=== PATIENT | male | born 1945 | race Caucasian/White ===

== ENCOUNTER → 2023-08-21 11:45 | Outpatient (REF) | payer OTHER, SELFPAY ==
[2023-08-21 12:32] LABS: % Basophils 0.5 % (0-2); % Immature Granulocytes 0.5 % (0-0.5); % Lymphocytes 37.6 % (20.5-51.1); % Monocytes 7.2 % (1.7-9.3); % Neutrophils 53.2 % (42.2-75.2); Absolute Basophils 0.1 10^3/uL (0-0.2); Absolute Eosinophils 0.1 10^3/uL (0-0.7); Absolute Immature Granulocytes 0.1 10^3/uL (0-0.05); Absolute Lymphocytes 4.8 10^3/uL (1.2-3.4); Absolute Monocytes 0.9 10^3/uL (0.1-0.6); Absolute Neutrophils 6.8 10^3/uL (1.4-6.5); Hematocrit 44.7 % (39.0-52.0); Hemoglobin 14.9 g/dL (13.0-18.0); Mean Corp Hgb Conc. 33.3 g/dL (33.0-37.0); Mean Corpuscular Hgb 29.8 pg (27.0-31.0); Mean Corpuscular Volume 89.4 fL (80.0-94.0); Mean Platelet Volume 10.4 fL (7.4-10.4); Nucleated Red Blood Cells % 0 % (-); Platelet Count 265 10^3/uL (130-400); Red Cell Dist. Width 12.5 % (11.5-14.5); White Blood Cell Count 12.8 10^3/uL (4.8-10.8)
== END ==
LOC: REG 11:45
PROVIDERS: ATTENDING PHYSICIAN Internal Medicine
DX: D72.829 Elevated white blood cell count, unspecified (principal)
CPT/HCPCS: 36415; 85025; 85540

== ENCOUNTER → 2023-10-05 13:32 | Outpatient (REF) | payer OTHER, SELFPAY | LOC: REG 13:32 | PROVIDERS: ATTENDING PHYSICIAN Internal Medicine | DX: D72.829 Elevated white blood cell count, unspecified (principal) | CPT/HCPCS: 36415 ==

== ENCOUNTER 2025-01-23 05:56 | Day surgery (SDC) | payer OTHER, SELFPAY ==
[2025-01-06 11:09] LABS: Hematocrit 39.4 % (39.0-52.0); Hemoglobin 13.5 g/dL (13.0-18.0); Mean Corp Hgb Conc. 34.3 g/dL (33.0-37.0); Mean Corpuscular Volume 88.1 fL (80.0-94.0); Platelet Count 222 10^3/uL (130-400); Red Cell Dist. Width 12.6 % (11.5-14.5)
[2025-01-06 11:49] LABS: Blood Urea Nitrogen 20 mg/dl (9-20); Calcium 9.8 mg/dl (8.4-10.2); Carbon Dioxide 24 mmol/L (22-30); Chloride 103 mmol/L (98-107); Glucose 138 mg/dl (70-99); Potassium 4.8 mmol/L (3.5-5.1); Sodium 135 mmol/L (135-145); eGFR > 60.00
[2025-01-06 13:44] VITALS: BMI 23.1
[2025-01-23] VITALS (7 sets, daily range): BP systolic 120–156; BP diastolic 50–73; BMI 23.1
--- NOTE | 2025-01-23 06:31 | HP.FOC2 ---
Focused History & Physical
Chief Complaint
HPI:
Chief Complaint: Left inguinal hernia and umbilical hernia
HPI / Indication for Planned Procedure: Patient is a 79-year-old male recently seen in outpatient surgical evaluation secondary to a history of swelling of discomfort in the left inguinal region. Symptoms are more noticeable at the end of the day
or after prolonged standing. The hernia remains reducible. An incidental umbilical hernia was also noted during physical examination. After discussions regarding treatment options patient wished to pursue operative correction and presents today
for scheduled surgery.
Relevant Past Medical History: Other (Type 2 diabetes, hypertension, history of prostate cancer)
Relevant Social History: Negative
Relevant Family History: Negative
Relevant Past Surgical History: Positive for (Perineal prostatectomy)
Review of Systems
Review of Pertinent Systems: All Systems Negative
Medication
See Medication form for detailed medications: Yes
Medication List (including Herbals & OTC):
atenolol 50 mg tablet 50 mg PO DAILY 03/08/10
metformin 500 mg tablet 500 mg PO BID 03/08/10
amlodipine 5 mg tablet 5 mg PO DAILY 01/16/25
ascorbic acid (vitamin C) 500 mg capsule,extended release 500 mg PO DAILY 01/16/25
glimepiride 1 mg tablet 1 mg PO DAILY 01/16/25
melatonin 10 mg tablet 10 mg PO HS PRN sleep 01/16/25
naproxen 500 mg tablet 500 mg PO BID PRN pain 01/16/25
Medications Reviewed: Yes
Allergies and Reactions
Patient has Allergies: No
Noted Allergies and Reactions:
Allergy/AdvReac Type Severity Reaction Status Date / Time
No Known Allergies Allergy Verified 01/23/25 06:18
Pertinent Physical Exam
All Other Systems: Negative
Head/Neck: Normal
Lungs: Normal
Heart: Normal
Abdomen: Other (Reducible umbilical hernia, reducible left inguinal hernia)
Extremities: Normal
Neurological: Normal
Diagnosis / Assessment
79-year-old male presenting for scheduled operative correction of left inguinal hernia as well as umbilical hernia
Plan / Procedure
Robotic assisted laparoscopic repair left inguinal hernia with mesh. Open umbilical hernia pair with mesh
Anesthesia/Sedation to be done by Anesthesia Provider: Yes
--- NOTE | 2025-01-23 06:33 | W.SUR.PREOP ---
Pre-Operative Surgical Note
-
I have examined this patient prior to the performance of the scheduled procedure.
The patient's condition is unchanged from the time of the current History and
Physical and the patient is able to undergo the scheduled procedure.
[2025-01-23] MEDS: TYLENOL 1000 MG PO (06:37)
[2025-01-23] MEDS: NORMOSOL-R/PLASMALYTE-A 1000 IV (06:44)
[2025-01-23 06:48] LABS: Glucose - Point of Care 161 mg/dl (70-99)
[2025-01-23 09:19] LABS: Glucose - Point of Care 185 mg/dl (70-99)
--- NOTE | 2025-01-23 10:23 | W.IMMPOSTOP ---
Addendum entered and electronically signed by Kranthi Bennett MD 01/23/25 16:43:
#[id number]
Original Note:
Surgical Immed Post Op Note
-
Primary Surgeon: Kranthi Bennett MD
Assisting Surgeon: None
Pre-op Diagnosis: Umbilical hernia; left inguinal hernia
Post-op Diagnosis: Umbilical hernia 2 cm; left inguinal hernia indirect
Procedure Performed: Robotic assisted laparoscopic MARC repair left inguinal hernia with mesh; 3D max large mid weight
Open repair umbilical hernia with mesh; Ventralex ST 6.4 cm round
Anesthesia Type: GETA +0.25% Marcaine with epinephrine
Specimen / Cultures: None
Estimated Blood Loss: 8 mL
Complications: None immediate
Operative Findings: Umbilical hernia with 2 cm fascial defect. Underlay preperitoneal repair with Ventralex ST 6.4 cm round
Left indirect inguinal hernia. Direct and femoral space normal. No lipoma of cord structures/inguinal canal identified. 3D max large mid weight mesh repair secured to Clarence's ligament with 2-0 Vicryl stitch x 2. Peritoneal flap closed with 2-0
Monocryl STRATAFIX spiral.
== END 2025-01-23 10:34 | disposition home or self-care (01) ==
LOC: SDS 05:56
PROVIDERS: ATTENDING PHYSICIAN Surgery; FAMILY PHYSICIAN Internal Medicine
DX: K40.90 Unilateral inguinal hernia, without obstruction or gangrene, not specified as recurrent (principal); K42.9 Umbilical hernia without obstruction or gangrene
CPT/HCPCS: 49650; 49591; 36415; 80048; 82962; 85027; 93005; C1781